=== PATIENT | male | born 1980 | race African-American/Black ===

== ENCOUNTER 2019-06-02 22:29 | Emergency (ER) | payer OTHER ==
[~2019-06-02] VITALS: Ht 175.3 cm; Wt 86.2 kg
[2019-06-02 22:39] VITALS: BP 136/86
[2019-06-02] MEDS ORDERED: Tetanus/Diptheria/Pertussis IM ONE (22:45)
[2019-06-02] MEDS ORDERED: Lidocaine 1% 10mg/ml/EPI 0.01mg/ml 20ml INJ ONE (22:45)
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
[2019-06-02] MEDS ORDERED: Lidocaine 2% 20mg/ml/Epi 0.005mg/ml 20ml vial ONE (22:50)
[2019-06-02] MEDS ORDERED: Lidocaine 2% 20mg/ml/EPI 0.01mg/ml 20ml INJ ONE (23:00)
[2019-06-02 23:14] VITALS: BP 130/82
--- NOTE | 2019-06-02 23:15 | NUR ---
ER DISCHARGE NOTE: Patient is cleared to be discharged per ERMD, pt is aox4, on room air, with stable vital signs. pt was given dc and prescription instructions, pt was able to verbalize understanding, pt id band removed without complications. pt is able to ambulate with steady gait. pt took all belongings.
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
== END 2019-06-02 23:30 ==
LOC: EDBD 22:29 → EMR 22:35
DX: R07.9 Chest pain, unspecified (principal); S20.352A Superficial foreign body of left front wall of thorax, initial encounter; I10 Essential (primary) hypertension; Z23 Encounter for immunization; W20.8XXA Other cause of strike by thrown, projected or falling object, initial encounter; Y92.512 Supermarket, store or market as the place of occurrence of the external cause
CPT/HCPCS: 71046; 90471; 90715; 99283